=== PATIENT | male | born 1950 | race Caucasian/White ===

== ENCOUNTER → 2018-03-05 | Outpatient (REF) ==
[~2018-03-05] MED LIST: BENADRYL25 MG PO; FLOMAX 0.40.4 MG/CAP PO; METHOCARBAMOL750 MG PO; OXYCODONE HCL5 MG PO; TRAMADOL50 MG PO; XANAX0.25 MG PO
[2018-03-05 15:08] LABS: THYROID STIMULATING HORMONE 3.94 uIU/mL (0.465-4.680)
== END ==
LOC: ZLAB.WCH 14:23
DX: Z01.89 Encounter for other specified special examinations (principal)

== ENCOUNTER → 2018-04-27 | Outpatient (REF) ==
[2018-04-27 16:47] LABS: THYROID STIMULATING HORMONE 3.63 uIU/mL (0.465-4.680)
== END ==
LOC: ZLAB.WCH 15:58
PROVIDERS: Family Medicine
DX: Z01.89 Encounter for other specified special examinations (principal)

== ENCOUNTER → 2024-04-12 | Outpatient (CLI) | payer MEDICARE, OTHER | LOC: COL.RAD 12:36 | DX: M50.31 Other cervical disc degeneration, high cervical region (principal); M50.321 Other cervical disc degeneration at C4-C5 level ==